=== PATIENT | female | born 1995 | race Caucasian/White ===

== ENCOUNTER 2017-04-24 19:29 | Emergency (ER) | payer OTHER ==
[~2017-04-24] VITALS: Ht 157.5 cm; Wt 61.4 kg
[2017-04-24] MEDS ORDERED: IBUP-1022 PO (20:48)
[2017-04-24] MEDS ORDERED: CYCL10TA PO (20:48)
[2017-04-24 20:56] VITALS: BP 112/55
[2017-04-24] MEDS ORDERED: CYCLOBENZAPRINE 10 MG TAB PO ONE (21:00)
[2017-04-24] MEDS ORDERED: IBUPROFEN 800 MG TAB PO ONE (21:00)
== END 2017-04-24 20:55 | disposition home or self-care (01) ==
LOC: M ED 19:29
DX: S39.012A Strain of muscle, fascia and tendon of lower back, initial encounter (principal); Z87.891 Personal history of nicotine dependence; X58.XXXA Exposure to other specified factors, initial encounter; Y92.89 Other specified places as the place of occurrence of the external cause; Y93.89 Activity, other specified; Y99.9 Unspecified external cause status